=== PATIENT | female | born 1975 | race African-American/Black ===

== ENCOUNTER 2017-03-04 08:39 | Emergency (ER) | payer OTHER, BC ==
[~2017-03-04] VITALS: Ht 167.6 cm; Wt 139.2 kg
[~2017-03-04 08:39] MED LIST: PERC5TAB12 PO; PREN0.01 PO
[2017-03-04 08:49] VITALS: BP 145/83; PULSE 93; RESP 16; TEMP 97.6; O2SAT 97
[2017-03-04] MEDS ORDERED: VITA1000 PO (08:56)
--- NOTE | 2017-03-04 09:09 | PD ---
HPI Chief Complaint: Musculoskeletal Complaint Time Seen by Provider: 08:54 Travel History International Travel<30 days: No Contact w/Intl Traveler<30days: No Traveled to known affect area: No History of Present Illness HPI 42yo F with no PMH presents to the ED with c/o left shoulder and ankle pain for 4 days. 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 Pain is more in lateral ankle and worst with movement. Denies any fall, focal weakness or numbness, fever, chest pain, sob, n/v, abdominal pain. Took advil with little relieve. Pt able to ambulate and bear weight on it. PFSH Past Medical History Medical History: Denies Significant Hx Blood Disorders: No Cancer: No Cardiovascular Problems: No Diminished Hearing: No Endocrine: No Genitourinary: No Immune Disorder: No Musculoskeletal: Yes Neurologic: No Psychiatric: No Reproductive: No Respiratory: No Tetanus Vaccination: < 5 Years Influenza Vaccination: No ?: Not LMP: 02/25/17 Para: 1 Past Surgical History Section: Yes (x 2) Gynecologic Surgery: Yes (c section x2) Social History Alcohol Use: No Tobacco Use: No Substance Use: No Allergies-Medications (Allergen,Severity, Reaction): Coded Allergies: No Known Allergies (Verified Adverse Reaction, Unknown, 03/04/17) Reported Meds & Prescriptions Reported Meds & Active Scripts Active Reported Vitamin D-1000 (Cholecalciferol) 1,000 Unit Tab 500 Units PO DAILY Review of Systems Except as stated in HPI: all other systems reviewed are Neg Physical Exam Narrative GENERAL: 42yo F not in distress. SKIN: Focused skin assessment warm/dry. HEAD: Atraumatic. Normocephalic. EYES: Pupils equal and round. No scleral icterus. No injection or drainage. CARDIOVASCULAR: Regular rate and rhythm. No murmur appreciated. RESPIRATORY: No accessory muscle use. Clear to auscultation. Breath sounds equal bilaterally. GASTROINTESTINAL: Abdomen soft, non-tender, nondistended. MUSCULOSKELETAL: Left ankle: +TTP lateral malleolus and about 2cm above the lateral malleolus. No erythema or ecchymoses. DP 2+. Sensation intact. No ttp base of fifth metatarsal. Good range of motion left ankle. LUE: FROM left shoulder. +TTP proximal humerus. Sensation intact. Radial pulse 2+. Good range of motion left shoulder. NEUROLOGICAL: Awake and alert. No obvious cranial nerve deficits. Motor grossly within normal limits. Normal speech. PSYCHIATRIC: Appropriate mood and affect; insight and judgment normal. Data Data Last Documented VS Vital Signs Date Time Temp Pulse Resp B/P (MAP) Pulse Ox O2 Delivery O2 Flow Rate FiO2 03/04/17 10:07 18 03/04/17 08:49 97.6 93 145/83 (103) 97 Orders Orders Ketorolac Inj (Toradol Inj) (03/04/17 09:15) Shoulder, Complete (>2vws) (03/04/17 ) Ankle, Limited (Ap&Lat) (03/04/17 ) MDM Medical Decision Making Medical Screen Exam Complete: Yes Emergency Medical Condition: Yes Differential Diagnosis Ankle sprain vs. fracture vs. rotator cuff tear Narrative Course 42yo well appearing female with left shoulder and left ankle pain s/p trying to catch a client 4 days ago. Xray left ankle showed soft tissue swelling lateral side without fracture. Xray left shoulder negative for fracture or dislocation. Pt given toradol which resolved pain. Recommended pt to follow up with PMD if pain persists. Diagnosis Primary Impression: Ankle sprain Qualified Codes: S93.402A - Sprain of unspecified ligament of left ankle, initial encounter Patient Instructions: General Instructions Departure Forms: Tests/Procedures Additional Instructions: Please follow up with your primary care physician if pain persists. Return to the ED if symptoms worsen. Med/Other Pt SpecificInfo: Prescription(s) given Scripts Ibuprofen (Ibuprofen) 600 Mg Tab 600 MG PO Q8H Y for PAIN, #20 TAB 0 Refills Prov: Amarilis Del Rio 03/04/17 Disposition: 01 DISCHARGE HOME Condition: Stable Amarilis Del Rio Mar 04, 2017 09:09
[2017-03-04] MEDS ORDERED: KETOROLAC TROMETHAMINE 60 MG/2 ML (IM) VIAL IM ONE (09:15)
--- NOTE | 2017-03-04 09:50 | RADRPT ---
EXAM DATE/TIME: 03/04/2017 09:10 [facility] COMPARISON: No previous studies available for comparison. 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 MEDICAL HISTORY : None. SURGICAL HISTORY : section. ENCOUNTER: Initial ACUITY: 4 - 6 days PAIN SCORE: 5/10 LOCATION: Left shoulder FINDINGS: Multiple view examination of the left shoulder demonstrates no evidence of fracture or dislocation. The glenohumeral and acromioclavicular joints are maintained. There is normal range of motion betwee n internal and external rotation. Bony mineralization is normal. CONCLUSION: Negative for fracture or dislocation. Follow up in 7-10 days is suggested if symptoms persist. MRI could offer more information. Ralf Ho MD FACR on March 04, 2017 at 9:47 Board Certified Radiologist. This report was verified electronically.
--- NOTE | 2017-03-04 09:50 | RADRPT ---
EXAM DATE/TIME: 03/04/2017 09:10 [facility] COMPARISON: No previous studies available for comparison. 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 SURGICAL HISTORY : section. ENCOUNTER: Initial ACUITY: 4 - 6 days PAIN SCORE: 5/10 LOCATION: Left lateral ankle FINDINGS: Minimal soft tissue swelling lateral side without fracture. Anatomic alignment. CONCLUSION: Soft tissue swelling lateral side without fracture. Ralf Ho MD FACR on March 04, 2017 at 9:47 Board Certified Radiologist. This report was verified electronically.
[2017-03-04 10:07] VITALS: RESP 18
[2017-03-04] MEDS ORDERED: IBUP-232 PO (10:18)
== END 2017-03-04 10:36 | disposition home or self-care (01) ==
LOC: PHEFT 08:39
DX: S93.402A Sprain of unspecified ligament of left ankle, initial encounter (principal); M25.512 Pain in left shoulder; W19.XXXA Unspecified fall, initial encounter
CPT/HCPCS: 73030; 73600; 96372; 99284; J1885